=== PATIENT | female | born 1960 | race Caucasian/White ===

== ENCOUNTER 2016-11-21 13:06 | Day surgery (SDC) | payer OTHER ==
[~2016-11-21] VITALS: Ht 157.5 cm; Wt 62.2 kg
[~2016-11-21 13:06] MED LIST: ACYCLOVIR800 MG PO; ALBUTEROL0.09 MG/A4 IH; BACTRIM 400 MG-1 TAB PO; BACTRIM DS 8001 TAB PO; BACTRIM PO; CARAFATE 1GM1 G PO; CIPRO 500MG TA500 MG PO; CLEOCIN HCL300 MG PO; DOXYCYCLINE 10100 MG PO; FLEXERIL10 MG PO; FLEXERIL5 MG PO; GERITOL COMPLET1 TAB PO; LORTAB 5/500 501 TAB PO; LORTAB 7.5/5001 TAB PO; MAALOX 225 MG/360 ML PO; MULTIPLE VITAMI1 TAB PO; MVI; NAPROXEN EC500 MG PO; NORCO 325 MG-51 TAB PO; PEPCID 20MG TAB20 MG PO; PREDNISONE10 MG PO; PREDNISONE20 MG PO; PREVACID 30MG30 MG PO; PRILOSEC 20MG20 MG PO; PYRIDIUM 100MG100 MG PO; UNABLE; VITAMIN D32000 IU PO; XANAX 0.5MG0.5 MG PO; XANAX 1MG1 MG PO; ZITHROMAX Z PA250 MG PO; ZOLOFT 50MG50 MG PO; [UNRECOGNIZED DRUG - OTHER] PO; vitamin b-12
[2016-11-21] MEDS ORDERED: MULTIPLE VITAMI1 TA5 PO (13:28)
[2016-11-21] MEDS ORDERED: XANAX 0.5MG0.5 MG PO (13:28)
[2016-11-21] MEDS ORDERED: ZOLOFT 25MG25 MG PO (13:28)
[2016-11-21] MEDS ORDERED: PRILOSEC 20MG20 MG PO (13:29)
[2016-11-21 13:30] VITALS: BP 120/79; PULSE 60; TEMP 97.7
[2016-11-21 15:30] VITALS: BP 122/98; PULSE 67; TEMP 99
[2016-11-21 15:45] VITALS: BP 113/71; PULSE 57
[2016-11-21 15:53] VITALS: BP 113/78
[2016-11-21 16:00] VITALS: PULSE 58
== END 2016-11-21 16:20 | disposition home or self-care (01) ==
LOC: SDCO 13:06
DX: Z86.010 Personal history of colon polyps (principal); Z80.0 Family history of malignant neoplasm of digestive organs; D12.5 Benign neoplasm of sigmoid colon
CPT/HCPCS: OP; J2250; J2405; J3010; J7030

== ENCOUNTER → 2016-12-07 | Outpatient (CLI) | payer OTHER ==
[~2016-12-07] MED LIST changes: +MULTIPLE VITAMI1 TA5 PO; +ZOLOFT 25MG25 MG PO
== END ==
LOC: ZLAB.FHCC 10:13
DX: Z86.19 Personal history of other infectious and parasitic diseases (principal)

== ENCOUNTER → 2017-02-20 | Outpatient (CLI) | payer OTHER | LOC: COL.RAD 09:27 | DX: R51 Headache (principal); R20.0 Anesthesia of skin ==

== ENCOUNTER → 2017-11-22 | Outpatient (CLI) | payer SELFPAY | LOC: COL.RAD 09:31 | DX: M77.31 Calcaneal spur, right foot (principal) ==

== ENCOUNTER → 2017-12-11 | Outpatient (CLI) | payer SELFPAY | LOC: COL.RAD 11:08 | DX: R93.7 Abnormal findings on diagnostic imaging of other parts of musculoskeletal system (principal) ==

== ENCOUNTER 2018-11-08 17:14 | Emergency (ER) | payer SELFPAY ==
[~2018-11-08] VITALS: Ht 157.5 cm; Wt 51.4 kg
[2018-11-08 17:16] VITALS: TEMP 98.7
[2018-11-08] MEDS ORDERED: INDOCIN 25MG CA25 MG PO (17:31)
[2018-11-08 18:16] VITALS: BP 150/84; PULSE 82
== END 2018-11-08 18:30 | disposition home or self-care (01) ==
LOC: COL.ER 17:14
DX: S93.601A Unspecified sprain of right foot, initial encounter (principal); F41.9 Anxiety disorder, unspecified; F17.210 Nicotine dependence, cigarettes, uncomplicated; Z88.0 Allergy status to penicillin; X50.0XXA Overexertion from strenuous movement or load, initial encounter; Y92.009 Unspecified place in unspecified non-institutional (private) residence as the place of occurrence of the external cause

== ENCOUNTER 2018-12-24 11:27 | Emergency (ER) | payer SELFPAY ==
[~2018-12-24] VITALS: Ht 157.5 cm; Wt 47.7 kg
[~2018-12-24 11:27] MED LIST changes: +INDOCIN 25MG CA25 MG PO
[2018-12-24 11:49] VITALS: BP 128/67; TEMP 98.1
[2018-12-24 12:00] LABS: COLLECTION METHOD CLEAN CATCH
[2018-12-24 12:10] LABS: MUCOUS Present /lpf; PH 5 (5-8); URINE APPEARANCE Turbid; URINE BACTERIA None Seen /hpf; URINE BILIRUBIN Negative (NEGATIVE); URINE BLOOD 3+ (NEGATIVE); URINE COLOR Amber; URINE GLUCOSE Negative (NEGATIVE); URINE KETONE Negative (NEGATIVE); URINE LEUKOCYTE ESTERASE 3+ (NEGATIVE); URINE NITRATE Negative (NEGATIVE); URINE PROTEIN(semi-quant) 2+ (NEGATIVE); URINE RBC >50 /hpf; URINE UROBILINOGEN Negative (NEGATIVE)
[2018-12-24 14:01] LABS: BASO % 0.3 % (0.0-2.0); EOS # 0.1 (0.0-0.7); EOS % 0.6 % (0-4.0); GRAN # 9.1 (1.4-6.5); GRAN % 76.2 % (42.2-75.2); HEMATOCRIT 37.7 % (37.0-47.0); HEMOGLOBIN 12.6 g/dl (12.5-16.0); LYMPH # 1.8 (1.2-3.4); LYMPH % 15.2 % (20.0-51.0); MEAN CELL VOLUME 88 fl (80.0-100.0); MEAN CORPUSCULAR HEMOGLOBIN 29 pg (27.0-31.0); MEAN CORPUSCULAR HGB CONC 33 g/dl (33.0-37.0); MEAN PLATELET VOLUME 10.9 fl (7.4-10.4); MONO # 0.9 (0.1-0.6); MONO % 7.4 % (1.7-9.3); PLATELET COUNT 206 K/mm3 (130-400); RED BLOOD COUNT 4.29 M/mm3 (4.10-5.30); REDCELL DISTRIBUTION WIDTH-CV 12.1 % (11.5-14.5)
[2018-12-24 14:27] LABS: ALBUMIN 3.9 gm/dL (3.5-5.0); BILIRUBIN,TOTAL 0.9 mg/dL (0.0-1.0); C-REACTIVE PROTEIN 0.6 mg/dL (0.0-0.9); CALCIUM 9.1 mg/dL (8.4-10.2); CREATININE, serum 0.64 mg/dL (0.52-1.25); TOTAL PROTEIN 6.8 gm/dL (6.4-8.2)
[2018-12-24] MEDS ORDERED: PYRIDIUM200 M1 PO (15:30)
[2018-12-24] MEDS ORDERED: OMNICEF 300MG300 MG PO (15:30)
[2018-12-24] MEDS ORDERED: NORCO 325 MG-51 TAB PO (15:30)
[2018-12-24 16:26] VITALS: PULSE 72
== END 2018-12-24 16:26 | disposition home or self-care (01) ==
LOC: COL.ER 11:27
PROVIDERS: Emergency Medicine
DX: N12 Tubulo-interstitial nephritis, not specified as acute or chronic (principal); F17.210 Nicotine dependence, cigarettes, uncomplicated; Z90.710 Acquired absence of both cervix and uterus
CPT/HCPCS: J0696; J1885; J3010; J7030; Q9967

== ENCOUNTER → 2019-02-17 | Outpatient (CLI) | payer SELFPAY ==
[~2019-02-17] MED LIST changes: +OMNICEF 300MG300 MG PO; +PYRIDIUM200 M1 PO
== END ==
LOC: COL.RAD 02-05 11:00
DX: E27.8 Other specified disorders of adrenal gland (principal)

== ENCOUNTER 2019-04-22 13:08 | Emergency (ER) | payer SELFPAY ==
[~2019-04-22] VITALS: Ht 157.5 cm; Wt 45.9 kg
[2019-04-22 13:30] VITALS: BP 135/71; PULSE 75; TEMP 98.5
[2019-04-22] MEDS ORDERED: PRIL40 PO (15:17)
--- NOTE | 2019-04-22 16:54 | NUR ---
HARRIET responded to ED consult. The patient came into the hospital due to right-sided ear pain and hearing loss. A appointment was made for the patient at [facility] with Dr. Martinez, but they require $50 up front and the patient reports that she does not have $50 and would not be able to pay. HARRIET contacted [facility] to inquire if there is any payment plans or financial assistance, so that she could meet with Dr. Martinez. ENT reports that there is not and that the $50 is their office policy. HARRIET then attempted to contact [facility] to inquire if they could provide assistance. HARRIET left a voicemail. HARRIET then met with the patient to update and discuss other assistance options. The patient then began to appear upset and agitated. She got out of her chair and began to exit her room. She states that no one is trying to help her and that no one cares. The patient then began to walk out. The patient's nurse informed the patient that she would need to sign paperwork. The patient continued to walk out of the hospital. The patient's appointment was kept at [facility].
== END 2019-04-22 16:40 | disposition home or self-care (01) ==
LOC: COL.ER 13:08
DX: H92.01 Otalgia, right ear (principal); H91.91 Unspecified hearing loss, right ear; F32.9 Major depressive disorder, single episode, unspecified; F41.9 Anxiety disorder, unspecified; F17.210 Nicotine dependence, cigarettes, uncomplicated; Z90.710 Acquired absence of both cervix and uterus; Z86.19 Personal history of other infectious and parasitic diseases

== ENCOUNTER 2022-06-10 09:59 | Emergency (ER) | payer SELFPAY ==
[~2022-06-10] VITALS: Ht 157.5 cm; Wt 44.1 kg
[~2022-06-10 09:59] MED LIST changes: +PRIL40 PO
[2022-06-10 10:32] VITALS: TEMP 97.1
[2022-06-10] MEDS ORDERED: FLAGYL500 MG PO (12:22)
[2022-06-10] MEDS ORDERED: DOXYCYCLINE HY100 MG PO (12:22)
[2022-06-10 12:53] VITALS: BP 140/70; PULSE 78
== END 2022-06-10 12:54 | disposition home or self-care (01) ==
LOC: COL.ER 09:59
DX: S61.512A Laceration without foreign body of left wrist, initial encounter (principal); S61.411A Laceration without foreign body of right hand, initial encounter; S61.511A Laceration without foreign body of right wrist, initial encounter; S51.812A Laceration without foreign body of left forearm, initial encounter; Z23 Encounter for immunization; Z88.0 Allergy status to penicillin; Z28.310 Unvaccinated for COVID-19; W55.03XA Scratched by cat, initial encounter